=== PATIENT | female | born 1945 | race Two or more races ===

== ENCOUNTER 2021-09-25 12:34 | Emergency (ER) | payer MEDICAID, OTHER ==
[~2021-09-25] VITALS: Ht 162.6 cm; Wt 54.4 kg
[2021-09-25 14:00] LABS: Basophils # (auto) 0.1 10 ^3/uL (0-0.2); Basophils % (auto) 0.5 % (0.0-2.0); Eosinophils # (auto) 0.1 10 ^3/uL (0-0.8); Eosinophils % (auto) 0.4 % (0.0-7.0); Hematocrit 42.3 % (36.0-46.0); Hemoglobin 14.1 g/dL (12.2-16.2); Lymphocytes # (auto) 1.6 10 ^3/uL (0.4-5.4); Mean Corpuscular Hemoglobin 28.8 pg (28.0-32.0); Mean Corpuscular Hgb Conc. 33.4 g/dL (32.0-36.0); Mean Corpuscular Volume 86.1 fL (80.0-100.0); Monocytes # (auto) 0.8 10 ^3/uL (0-1.3); Monocytes % (auto) 6.2 % (0.0-12.0); Neutrophils # (auto) 10.9 10 ^3/uL (1.6-8.6); Neutrophils % (auto) 80.9 % (37.0-80.0); Red Blood Cells 4.91 10^6/uL (4.0-5.20); Red Cell Distribution Width 13.6 % (11.8-14.3); White Blood Cell 13.4 10^3/uL (4.4-10.8)
[2021-09-25 14:15] LABS: Albumin 3.7 g/dL (3.4-5.0); Calcium 9.9 mg/dL (8.5-10.1); Potassium 3.6 mmol/L (3.5-5.1)
[2021-09-25 14:19] LABS: BUN/Creatinine Ratio 15.6; Bilirubin, Total 0.4 mg/dL (0.2-1.0); Total Protein 7.8 g/dL (6.4-8.2)
[2021-09-25 16:06] LABS: Urine Bacteria NONE SEEN /hpf (None Seen); Urine Blood 1+ /uL (Negative); Urine Specific Gravity 1.016 (1.001-1.035); Urine WBC 1 /hpf (0 - 5)
[2021-09-25 17:00] VITALS: BP 150/66
== END 2021-09-25 18:52 | disposition home or self-care (01) ==
LOC: ER 12:34
DX: J20.9 Acute bronchitis, unspecified (principal); I10 Essential (primary) hypertension; Z20.822 Contact with and (suspected) exposure to COVID-19
CPT/HCPCS: 36415; 71046; 80053; 81001; 83880; 85025; 85379; 87426; 93005

== ENCOUNTER 2021-10-22 18:07 | Inpatient (IN) | payer MEDICAID ==
[~2021-10-22] VITALS: Ht 157.5 cm; Wt 62.5 kg
[2021-10-22] MEDS ORDERED: cefTRIAXone 1GM/50ML D5W 50 ML IV ONE (18:45)
[2021-10-22] MEDS ORDERED: AZITHROMYCIN 500MG/ 250ML 250 ML IV ONE (18:45)
[2021-10-22] MEDS ORDERED: SODIUM CHLORIDE 0.9% 1,000 ML IV ONE (18:45)
[2021-10-22 20:48] LABS: Basophils # (auto) 0 10 ^3/uL (0-0.2); Eosinophils # (auto) 0 10 ^3/uL (0-0.8); Hemoglobin 12.5 g/dL (12.2-16.2); Monocytes # (auto) 1.5 10 ^3/uL (0-1.3); Monocytes % (auto) 9.2 % (0.0-12.0); Neutrophils # (auto) 13.4 10 ^3/uL (1.6-8.6)
[2021-10-22 20:56] LABS: Basophils % (auto) 0.2 % (0.0-2.0); Hematocrit 37.9 % (36.0-46.0); Lymphocytes % (auto) 6.6 % (10.0-50.0); Mean Corpuscular Hemoglobin 28.5 pg (28.0-32.0); Mean Corpuscular Hgb Conc. 33.1 g/dL (32.0-36.0); Mean Corpuscular Volume 86.1 fL (80.0-100.0); Red Cell Distribution Width 13.2 % (11.8-14.3)
[2021-10-22 21:03] LABS: Albumin 2.8 g/dL (3.4-5.0); Calcium 8.4 mg/dL (8.5-10.1); Magnesium 2.7 mg/dL (1.6-2.6); Potassium 3.3 mmol/L (3.5-5.1)
[2021-10-22 21:09] LABS: BUN/Creatinine Ratio 17.3; Bilirubin, Total 0.2 mg/dL (0.2-1.0); Total Protein 6.9 g/dL (6.4-8.2)
[2021-10-22 21:14] LABS: INR 1.03 (0.9-1.15); Partial Thromboplastin Time 28.2 sec (23.6-33.0)
[2021-10-22] MEDS ORDERED: IOHEXOL 350 MG/ML 100ML IJ ONE (22:09)
[2021-10-23 01:36] LABS: Urine Bacteria NONE SEEN /hpf (None Seen); Urine Blood 1+ /uL (Negative); Urine Hyaline Cast FEW /lpf (0 - 2); Urine Mucus FEW (None Seen); Urine Specific Gravity 1.041 (1.001-1.035); Urine WBC 2 /hpf (0 - 5)
[2021-10-23] MEDS ORDERED: KETOROLAC TROMETH 30 MG/ML 1ML VIAL IV ONE (04:00)
[2021-10-23] MEDS ORDERED: MORPHINE SULFATE INJECTION 2 MG/ML SYRG IV PRN (05:00)
[2021-10-23] MEDS ORDERED: ONDANSETRON HCL 4 MG/2 ML VIAL IV PRN (05:00)
[2021-10-23 07:15] VITALS: BP 90/57
[2021-10-23] MEDS: HYDROcodone-ACET 5/325MG TAB PO PRN ×2 (09:14→20:15)
[2021-10-23] MEDS: levoFLOXacin 500MG 100 ML IV SCH (10:00)
[2021-10-23 12:23] VITALS: BP 137/49
[2021-10-23 17:00] VITALS: BP 125/56
[2021-10-23 22:00] VITALS: BP 126/60
[2021-10-24 05:00] VITALS: BP 133/60
[2021-10-24 09:00] VITALS: BP 151/56
[2021-10-24] MEDS: levoFLOXacin 500MG 100 ML IV SCH (10:04)
[2021-10-24] MEDS: HYDROcodone-ACET 5/325MG TAB PO PRN ×2 (10:20→17:48)
[2021-10-24] MEDS: ALBUTEROL SULF 2.5 MG/0.5ML(0.5%) NEB SOLN NEB PRN ×2 (11:46→22:11)
[2021-10-24 12:46] VITALS: BP 118/58
[2021-10-24 16:55] VITALS: BP 131/54
[2021-10-24 22:00] VITALS: BP 137/60
[2021-10-25 05:00] VITALS: BP 133/87
[2021-10-25] MEDS: ALBUTEROL SULF 2.5 MG/0.5ML(0.5%) NEB SOLN NEB PRN (07:43)
[2021-10-25 09:00] VITALS: BP 129/53
[2021-10-25] MEDS: levoFLOXacin 500MG 100 ML IV SCH (09:12)
[2021-10-25 09:42] LABS: Basophils # (auto) 0.1 10 ^3/uL (0-0.2); Basophils % (auto) 0.9 % (0.0-2.0); Eosinophils # (auto) 0 10 ^3/uL (0-0.8); Eosinophils % (auto) 0.2 % (0.0-7.0); Hematocrit 38.3 % (36.0-46.0); Hemoglobin 13.2 g/dL (12.2-16.2); Lymphocytes # (auto) 1.3 10 ^3/uL (0.4-5.4); Lymphocytes % (auto) 21.4 % (10.0-50.0); Mean Corpuscular Hemoglobin 29.9 pg (28.0-32.0); Mean Corpuscular Hgb Conc. 34.5 g/dL (32.0-36.0); Mean Corpuscular Volume 86.7 fL (80.0-100.0); Monocytes # (auto) 0.5 10 ^3/uL (0-1.3); Monocytes % (auto) 8.6 % (0.0-12.0); Neutrophils # (auto) 4.3 10 ^3/uL (1.6-8.6); Neutrophils % (auto) 68.9 % (37.0-80.0); Red Blood Cells 4.42 10^6/uL (4.0-5.20); Red Cell Distribution Width 13.2 % (11.8-14.3); White Blood Cell 6.2 10^3/uL (4.4-10.8)
[2021-10-25 09:58] LABS: BUN/Creatinine Ratio 14.5; Calcium 9.7 mg/dL (8.5-10.1); Potassium 3.8 mmol/L (3.5-5.1)
[2021-10-25 13:00] VITALS: BP 135/68
[2021-10-25 17:00] VITALS: BP 137/69
[2021-10-25 22:00] VITALS: BP 140/74
[2021-10-26] VITALS (7 sets, daily range): BP systolic 126–172; BP diastolic 55–83
[2021-10-26 05:44] LABS: Basophils # (auto) 0 10 ^3/uL (0-0.2); Basophils % (auto) 0.7 % (0.0-2.0); Eosinophils # (auto) 0.1 10 ^3/uL (0-0.8); Eosinophils % (auto) 1.1 % (0.0-7.0); Hematocrit 41.1 % (36.0-46.0); Hemoglobin 14.2 g/dL (12.2-16.2); Lymphocytes # (auto) 1.7 10 ^3/uL (0.4-5.4); Lymphocytes % (auto) 28.3 % (10.0-50.0); Mean Corpuscular Hemoglobin 29.8 pg (28.0-32.0); Mean Corpuscular Hgb Conc. 34.5 g/dL (32.0-36.0); Mean Corpuscular Volume 86.2 fL (80.0-100.0); Monocytes # (auto) 0.7 10 ^3/uL (0-1.3); Monocytes % (auto) 11.4 % (0.0-12.0); Neutrophils # (auto) 3.5 10 ^3/uL (1.6-8.6); Neutrophils % (auto) 58.5 % (37.0-80.0); Nucleated Red Blood Cells % 0.1 %; Red Blood Cells 4.77 10^6/uL (4.0-5.20); Red Cell Distribution Width 12.9 % (11.8-14.3)
[2021-10-26] MEDS ORDERED: guaiFENesin 200 MG/10 ML UD GT PRN (05:45)
[2021-10-26] MEDS ORDERED: guaiFENesin 200 MG/10 ML UD PO PRN (06:00)
[2021-10-26 06:05] LABS: Calcium 9.9 mg/dL (8.5-10.1); Potassium 4.2 mmol/L (3.5-5.1)
[2021-10-26 06:07] LABS: BUN/Creatinine Ratio 19.2
[2021-10-26] MEDS: ENOXAPARIN SOD 40 MG/0.4 ML SYRINGE SC SCH (09:52)
[2021-10-26] MEDS: levoFLOXacin 500MG 100 ML IV SCH (09:52)
[2021-10-27 05:00] VITALS: BP 138/57
[2021-10-27 06:12] LABS: Basophils # (auto) 0 10 ^3/uL (0-0.2); Basophils % (auto) 0.8 % (0.0-2.0); Eosinophils # (auto) 0.1 10 ^3/uL (0-0.8); Eosinophils % (auto) 2.1 % (0.0-7.0); Hematocrit 41.8 % (36.0-46.0); Hemoglobin 14.1 g/dL (12.2-16.2); Lymphocytes # (auto) 1.8 10 ^3/uL (0.4-5.4); Lymphocytes % (auto) 32.3 % (10.0-50.0); Mean Corpuscular Hemoglobin 28.9 pg (28.0-32.0); Mean Corpuscular Hgb Conc. 33.8 g/dL (32.0-36.0); Mean Corpuscular Volume 85.4 fL (80.0-100.0); Monocytes # (auto) 0.6 10 ^3/uL (0-1.3); Monocytes % (auto) 11.5 % (0.0-12.0); Neutrophils % (auto) 53.3 % (37.0-80.0); Nucleated Red Blood Cells % 0.1 %; Red Blood Cells 4.89 10^6/uL (4.0-5.20); Red Cell Distribution Width 13.2 % (11.8-14.3); White Blood Cell 5.6 10^3/uL (4.4-10.8)
[2021-10-27 06:31] LABS: BUN/Creatinine Ratio 22.6; Calcium 10.1 mg/dL (8.5-10.1); Potassium 4.1 mmol/L (3.5-5.1)
[2021-10-27 09:00] VITALS: BP 132/72
[2021-10-27] MEDS: levoFLOXacin 500MG 100 ML IV SCH (09:25)
[2021-10-27] MEDS: ENOXAPARIN SOD 40 MG/0.4 ML SYRINGE SC SCH (09:25)
[2021-10-27] MEDS: HYDROcodone-ACET 5/325MG TAB PO PRN ×3 (10:05→10:07)
[2021-10-27 12:58] VITALS: BP 131/74
[2021-10-27 17:06] VITALS: BP 134/74
== END 2021-10-27 21:00 | disposition home health service (06) | DRG 139 ==
LOC: ER 18:07 → TELE 10-23 04:47 → TELE-WESTW 10-23 16:11
PROVIDERS: ADMIT Internal Medicine; ATTEND Internal Medicine
DX: J15.9 Unspecified bacterial pneumonia (principal); J96.01 Acute respiratory failure with hypoxia; G93.1 Anoxic brain damage, not elsewhere classified; E44.1 Mild protein-calorie malnutrition; S22.43XA Multiple fractures of ribs, bilateral, initial encounter for closed fracture; I10 Essential (primary) hypertension; I95.1 Orthostatic hypotension; Z20.822 Contact with and (suspected) exposure to COVID-19; W18.39XA Other fall on same level, initial encounter; R59.0 Localized enlarged lymph nodes; Z88.0 Allergy status to penicillin; Y93.89 Activity, other specified; Y92.89 Other specified places as the place of occurrence of the external cause; Y99.8 Other external cause status; Z91.012 Allergy to eggs; Z91.018 Allergy to other foods
CPT/HCPCS: 36415; 36600; 70450; 70551; 71275; 80048; 80053; 81001; 82805; 83605; 83690; 83735; 84484; 85025; 85379; 85610; 85730; 87040; 87426; 87804; 93306; 94640; 95819; 97116; 97162; 97530; G0378; J0696; J1885; J1956; J2405

== ENCOUNTER 2025-06-18 11:29 | Inpatient (IN) | payer MEDICAID, OTHER ==
[~2025-06-18] VITALS: Ht 162.6 cm; Wt 68.0 kg
--- NOTE | 2025-06-18 11:38 | ED.PDOC ---
HPI Comments 80-year-old female with PMHx DM, HTN, Osteoarthritis, COPD brought in by EMS presents with a chief complaint of chest pain x onset this morning with associated nausea. Patient mentions that he pain is localized to her sternal region, radiating down to her right leg, describes as sharp, and rates her pain a 8/10. Patient took 324 ASA prior to EMS arrival. Patient is on 2L of O2 via NC. Patient has no family history of heart disease. Time Seen by MD: 11:29 Reviewed Notes: Medications, Allergies Allergies: Coded Allergies: Amoxicillin (Verified Allergy, Unknown, 06/18/25) Penicillins (Verified Allergy, Unknown, 06/18/25) Sulfa Antibiotics (Verified Allergy, Unknown, 06/18/25) Information Source: Patient, Emergency Med Personnel Mode of Arrival: EMS Severity: Moderate Timing: Hours Duration: Since onset Prehospital treatment: 12 Lead EKG, ASA, Rotary Filter Operator Location: Substernal Quality: Sharp Onset: At Rest Cardiac Risk Factors: HTN, Diabetes PE Risk Factors: None History of: None Past Medical History PAST MEDICAL HISTORY: Arthritis, COPD, DM, HTN Surgical History (Other): BILATERAL KNEE REPLACEMENT 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: Denies all 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 Hx Family History Family History: Reviewed,noncontributory to illness Social History Smoker: Non-Smoker Alcohol: Denies ETOH Use Drugs: Denies Drug Use Lives In: Home Constitutional: denies: chills, diaphoresis, fatigue, fever, malaise, sweats, weakness, others EENTM: denies: blurred vision, double vision, ear bleeding, ear discharge, ear drainage, ear pain, ear ringing, eye pain, eye redness, hearing loss, mouth pain, mouth swelling, nasal discharge, nose bleeding, nose congestion, nose pain, photophobia, tearing, throat pain, throat swelling, voice changes, others Respiratory: denies: cough, hemoptysis, orthopnea, SOB at rest, shortness of breath, SOB with excertion, stridor, wheezing, others Cardiovascular: reports: chest pain; denies: dizzy spells, diaphoresis, Dyspnea on exertion, edema, irregular heart beat, left arm pain, lightheadedness, palpitations, PND, syncope, others Gastrointestinal: reports: nausea; denies: abdomen distended, abdominal pain, blood streaked bowels, constipated, diarrhea, dysphagia, difficulty swallowing, hematemesis, melena, poor appetite, poor fluid intake, rectal bleeding, rectal pain, vomiting, others Genitourinary: denies: abnormal vagina bleeding, burning, dyspareunia, dysuria, flank pain, frequency, hematuria, incontinence, pain, , vagina discharge, urgency, others Neurological: denies: dizziness, fainting, headache, left sided numbness, left sided weakness, numbness, paresthesia, pre-existing deficit, right sided numbness, right sided weakness, seizure, speech problems, tingling, tremors, weakness, others Musculoskeletal: denies: back pain, gout, joint pain, joint swelling, muscle pain, muscle stiffness, neck pain, others Integumetry: denies: bruises, change in color, change in hair/nails, dryness, laceration, lesions, lumps, rash, wounds, others Allergic/Immunocompromised: denies: Difficulty Healing, Frequent Infections, Hives, Itching, others Hematologic/Lymphatic: denies: anemia, blood clots, easy bleeding, easy bruising, swollen glands, others Endocrine: denies: excessive hunger, excessive sweating, excessive thirst, excessive urination, flushing, intolerance to cold, intolerance to heat, u nexplained weight gain, unexplained weight loss, others Psychiatric: denies: anxiety, bipolar disorder, depression, hopeless, panic disorder, schizophrenia, sleepless, suicidal, others All Other Systems: Reviewed and Negative Physical Exam General Appearance: Moderate Distress HEENT: Normal ENT Inspection, Pharynx Normal, TMs Normal Neck: Full Range of Motion, Non-Tender, Normal, Normal Inspection Respiratory: Chest Non-Tender, Lungs Clear, No Accessory Muscle Use, No Respiratory Distress, Normal Breath Sounds Cardiovascular: No Edema, No JVD, No Murmur, No Gallop, Normal Peripheral Pulses, Regular Rate/Rhythm Breast Exam: Deferred Gastrointestinal: No Organomegaly, Non Tender, No Pulsatile Mass, Normal Bowel Sounds, Soft Genitalia: Deferred Pelvic: Deferred Rectal: Deferred Extremities: No calf tenderness, Normal capillary refill, Normal inspection, Normal range of motion, Non-tender, No pedal edema Musculoskeletal : Apperance: Normal Neurologic: Alert, explosive technician II-XII nml as Tested, Motor Weakness, Normal Affect, Normal Mood, No Sensory Deficits Cerebellar Function: Normal Reflexes: Normal Skin: Dry, Normal Color, Warm Lymphatic: No Adenopathy EKG EKG : Pulse Rate (adult): 74 [place]: RAD Cardiac Rhythm: NSR Block: None Hypertrophy: None ST: Normal Was a procedure done? Was a procedure done?: No CP Differential Dx Differential Diagnosis: Angina, [place], Pulmonary Embolus Differential Diagnosis: CHF Differential Diagnosis: Pericarditis X-Ray, Labs, Meds, VS Vital Signs Date Time Temp Pulse Resp B/P (MAP) Pulse Ox O2 Delivery O2 Flow Rate FiO2 06/18/25 14:21 75 16 164/75 (104) 97 06/18/25 12:42 70 06/18/25 11:38 74 06/18/25 11:36 97.4 79 20 162/71 (101) 98 97.4 06/18/25 11:33 74 Lab Test 06/18/25 11:45 06/18/25 11:33 Range/Units White Blood Count 6.8 4.4-10.8 10^3/uL Red Blood Count 4.94 4.0-5.20 10^6/uL Hemoglobin 14.4 12.2-16.2 g/dL Hematocrit 41.7 36.0-46.0 % Mean Corpuscular Volume 84.4 80.0-100.0 fL Mean Corpuscular Hemoglobin 29.1 28.0-32.0 pg Mean Corpuscular Hemoglobin Concent 34.5 32.0-36.0 g/dL Red Cell Distribution Width 14.7 H 11.8-14.3 % Platelet Count 332 140-450 10^3/uL Mean Platelet Volume 7.4 6.9-10.8 fL Neutrophils (%) (Auto) 60.9 37.0-80.0 % Lymphocytes (%) (Auto) 28.1 10.0-50.0 % Monocytes (%) (Auto) 8.3 0.0-12.0 % Eosinophils (%) (Auto) 2.0 0.0-7.0 % Basophils (%) (Auto) 0.7 0.0-2.0 % Neutrophils # (Auto) 4.1 1.6-8.6 10 ^3/uL Lymphocytes # (Auto) 1.9 0.4-5.4 10 ^3/uL Monocytes # (Auto) 0.6 0-1.3 10 ^3/uL Eosinophils # (Auto) 0.1 0-0.8 10 ^3/uL Basophils # (Auto) 0.1 0-0.2 10 ^3/uL Nucleated Red Blood Cells 0.1 % Sodium Level 142 136-145 mmol/L Potassium Level 4.4 3.5-5.1 mmol/L Chloride Level 107 98-107 mmol/L Carbon Dioxide Level 28 20-31 mmol/L Anion Gap 7 5-15 Blood Urea Nitrogen 11 9-23 mg/dL Creatinine 0.60 0.550-1.02 mg/dL Glomerular Filtration Rate Calc 92 >90 mL/min BUN/Creatinine Ratio 18.3 10.0-20.0 Serum Glucose 100 74-106 mg/dL Calcium Level 10.3 8.7-10.4 mg/dL Troponin I High Sensitivity < 3 L </=34 ng/L B-Type Natriuretic Peptide 10.18 0-100 pg/mL Urine Color Colorless Yellow Urine Clarity Clear Clear Urine pH 7.0 5.0-9.0 Urine Specific [place] 1.008 1.001-1.035 Urine Protein Negative Negative Urine Ketones Negative Negative Urine Blood Negative Negative /uL Urine Nitrite Negative Negative Urine Bilirubin Negative Negative Urine Urobilinogen Normal Negative mg/dL Urine Leukocyte Esterase Negative Negative /uL Urine RBC 1 0 - 4 /hpf Urine Microscopic WBC 0-5 /HPF Urine Squamous Epithelial Cells None seen <5 /hpf Urine Bacteria None seen None Seen /hpf Urine Glucose Normal Normal mg/dL IV Hep-Lock was established The patient's CBC is within normal limits The chemistry panel is within normal limits The troponin level is negative The urine test is within normal limits Chest x-ray is negative At this time, the patient is being admitted to the hospitalist Images Reviewed?: Images reviewed and evaluated by me Time of 1ST Reevaluation: 11:59 Reevaluation 1ST: Improved Patient Education/Counseling: Diagnosis, Treatment, Prognosis Family Education/Counseling: No Family Present SEPSIS Sepsis Screen Physician Orders Heplock Iv (06/18/25 11:33) Rotary Filter Operator (06/18/25 11:33) Blood Pressure (06/18/25 11:33) Pulse Oximetry (06/18/25 11:33) Troponin-I Hs (06/18/25 12:33) Troponin-I Hs (06/18/25 14:33) Electrocardigram (06/18/25 14:33) Chest Portable (06/18/25 11:34) Vital Signs Date Time Temp Pulse Resp B/P (MAP) Pulse Ox O2 Delivery O2 Flow Rate FiO2 06/18/25 14:21 75 16 164/75 (104) 97 06/18/25 12:42 70 06/18/25 11:38 74 06/18/25 11:36 97.4 79 20 162/71 (101) 98 97.4 06/18/25 11:33 74 Laboratory Tests Test 06/18/25 11:45 White Blood Count 6.8 10^3/uL (4.4-10.8) Departure 1 Departure Time of Disposition: 14:59 Impression: Primary Impression: Acute coronary syndrome Disposition: ADMITTED INPATIENT Admit to: Tele Condition: Fair Critical Care Note Critical Care Time?: Yes (45 min-critical care time only) Stability Stability form required: Yes Unstable for transfer: Telemetry monitoring (Telemetry monitoring required), ED Physician Assesment (Clinical assesment) Heart Score Heart Score: Heart Score Response (Comments) Value History Moderate Suspicious 1 EKG Repolarization Disturb 1 Age >65 2 Risk Factors >3 or Hx ASHD 2 Troponin Normal limit 0 Total 6 I personally scribed for CHIN RODRIGUEZ MD ([email or web address]) on 06/18/25 at 11:38. Electronically submitted by John Larson ([email or web address]). CHIN RODRIGUEZ MD Jun 18, 2025 11:38
[2025-06-18 12:19] LABS: Hematocrit 41.7 % (36.0-46.0); Hemoglobin 14.4 g/dL (12.2-16.2); Mean Corpuscular Hemoglobin 29.1 pg (28.0-32.0); Mean Corpuscular Volume 84.4 fL (80.0-100.0); Nucleated Red Blood Cells % 0.1 %
--- NOTE | 2025-06-18 12:30 | DVH ---
INDICATION: CP TECHNIQUE: Frontal view of the chest. COMPARISON: None FINDINGS: Left-sided chronic rib fractures. The heart and mediastinal contours are grossly unremarkable. There is no evidence of pleural disease. The lungs are clear. The bony structures of the chest are inta ct without fracture. IMPRESSION: 1. No evidence of acute disease.
[2025-06-18 12:31] LABS: Anion Gap 7 (5-15); Carbon Dioxide 28 mmol/L (20-31); Potassium 4.4 mmol/L (3.5-5.1); Sodium 142 mmol/L (136-145)
[2025-06-18 12:32] LABS: Calcium 10.3 mg/dL (8.7-10.4); Chloride 107 mmol/L (98-107)
[2025-06-18 12:37] LABS: BUN/Creatinine Ratio 18.3 (10.0-20.0); Blood Urea Nitrogen 11 mg/dL (9-23); Glucose 100 mg/dL (74-106)
--- NOTE | 2025-06-18 12:45 | ECG ---
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
[2025-06-18 12:54] LABS: Urine Protein, UAD Negative (Negative)
--- NOTE | 2025-06-18 14:46 | ECG ---
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
[2025-06-18] MEDS ORDERED: ALBUTEROL SULF 2.5 MG/0.5ML(0.5%) NEB SOLN NEB PRN (15:15)
[2025-06-18] MEDS ORDERED: hydrALAZINE HCL 20 MG/ML VL IV PRN (15:15)
[2025-06-18] MEDS ORDERED: DEXTROSE (50%) 50ML SYRG IV PRN (15:30)
[2025-06-18] MEDS ORDERED: ACETAMINOPHEN 325 MG TAB PO PRN (15:30)
[2025-06-18] MEDS ORDERED: HYDROcodone-ACET 5/325MG TAB PO PRN (15:30)
[2025-06-18] MEDS ORDERED: ONDANSETRON HCL 4 MG/2 ML VIAL IV PRN (15:30)
[2025-06-18] MEDS ORDERED: DOCUSATE SOD 100 MG CAP PO PRN (15:30)
[2025-06-18] MEDS: InsuLIN REG 1unit/0.01ml Soln (100units/ml) SC SCH (17:00)
[2025-06-18 17:12] VITALS: BP 164/75; PULSE 75; RESP 16; TEMP 97.4; O2SAT 97
[2025-06-18] MEDS: ACCU-CHEK COMFORT CURVE STRIP VI SCH (17:17)
--- NOTE | 2025-06-18 17:25 | DVHHP2 ---
History of Present Illness Reason for Visit: Acute coronary syndrome History of Present Illness The patient is a 80-year-old female with past medical history of arthritis, COPD, diabetes mellitus, hypertension, and hyperlipidemia who presented to [facility] ED with complaint of chest pain. Patient reports she has been experiencing localized tenderness chest pain radiating down to her right leg, described as sharp, rating 8/10 numeric scale, associated with nausea, getting worse that prompted this visit. Patient was seen and evaluated in the ED, laboratory data shows WBC 6.8, platelets 332, sodium 142, potassium 4.4, BUN 11, creatinine 0.60, glucose 100, calcium 10.3, BNP 10.18, troponin < 3, blood pressure 164/75, heart rate 75, temperature 97.6 F, O2 saturation 97% on room air. Chest x-ray show no evidence of acute disease, please see medication orders section in the computer. On my assessment, patient denied chest pain at this moment, no headache, no dizziness, no shortness of breath, no nausea, no vomiting, no fever, no chills. Patient was admitted for further evaluation and medical management. Past Medical History Arthritis, COPD, DM, HTN, HLD Past Surgical History Bilateral knee replacement Family History Reviewed, noncontributory to the management of this case. Past Social History The patient lives at home, denies smoking, alcohol or illicit drugs abuse. Review of Systems Constitutional: Yes: Weakness; No: Fever, Chills, Sweats, Malaise, Other Eyes: No: Pain, Vision change, Conjunctivae inflammation, Eyelid inflammation, Other, Redness ENT: No: Ear pain, Ear discharge, Nose pain, Nose discharge, Nose congestion, Mouth pain, Mouth swelling, Throat pain, Throat swelling, Other Respiratory: No: Cough, Dry, Shortness of breath, SOB with excertion, Wheezing, Hemoptysis, Pleuritic Pain, Sputum, Wheezing, Other Cardiovascular: Chest Pain; No: Palpitations, Orthopnea, Paroxysmal Noc. Dyspnea, Edema, Lt Headedness, Other Gastrointestinal: Nausea; No: Vomiting, Abdominal Pain, Diarrhea, Constipation, Melena, Hematochezia, Other Genitourinary: No Dysuria, No Frequency, No Incontinence, No Hematuria, No Retention, No Other Musculoskeletal: No: other, neck pain, shoulder pain, arm pain, back pain, hand pain, leg pain, foot pain Skin: No: Rash, Lesions, Jaundice, Bruising, Other Neurological: No: Weakness, Numbness, Incoordination, Change in speech, Confusion, Seizures, Other Allergies: Coded Allergies: Amoxicillin (Unverified Allergy, Unknown, 06/18/25) Egg-derived Products (Verified Allergy, Unknown, 10/24/21) Penicillins (Verified Allergy, Unknown, 10/22/21) Pineapple (Verified Allergy, Unknown, 10/24/21) [place] (Verified Allergy, Unknown, 10/24/21) Sulfa Antibiotics (Unverified Allergy, Unknown, 06/18/25) Medications Current Medications Medications Dose Ordered Sig/Alpa Route Start Time Stop Time Status Last Admin Dose Admin Aspirin 81 mg DAILY PO 06/19/25 10:00 Atorvastatin Calcium 10 mg HS PO 06/18/25 22:00 Famotidine 20 mg DAILY IV 06/19/25 10:00 Losartan Potassium 50 mg DAILY PO 06/19/25 10:00 Hydralazine HCl 10 mg Q6HP PRN IV 06/18/25 15:15 Albuterol 2.5 mg Q4HPRN PRN NEB 06/18/25 15:15 Diagnostic Test (Pha) 1 strip ACHS 06/18/25 17:00 06/18/25 17:17 1 STRIP Insulin Human Regular ACHS SC 06/18/25 17:00 Dextrose 50 ml UD PRN IV 06/18/25 15:30 Sodium Chloride 10 ml Q8HR IV 06/18/25 22:00 Acetaminophen/ Hydrocodone Bitart 1 tab Q4HP PRN PO 06/18/25 15:30 Ondansetron HCl 4 mg Q4HP PRN IV 06/18/25 15:30 Docusate Sodium 100 mg BIDPRN PRN PO 06/18/25 15:30 Acetaminophen 650 mg Q6HP PRN PO 06/18/25 15:30 Exam Vital Signs Vital Signs Date Time Temp Pulse Resp B/P (MAP) Pulse Ox O2 Delivery O2 Flow Rate FiO2 06/18/25 17:12 97.4 75 16 164/75 97 21 97.4 General Appearance: Alert, Oriented X3, Cooperative, No acute distress HEENT: Atraumatic, PERRLA, EOMI, Mucous membr. moist/pink Respiratory: Normal air movement Cardiovascular: Regular rate, Normal S1, Normal S2, No murmurs Abdominal: Normal bowel sounds, Soft, No tenderness, No hepatospenomegaly, No masses Extremities: No clubbing, No cyanosis, No edema, Normal pulses, No tenderness/swelling Skin: No rashes, No breakdown, No significant lesion Neuro: Normal speech, Normal tone, Sensation intact, Cranial nerves 3-12 NL, Reflexes 2+, Other (Generalized weakness) Psych/Mental Status: Mental status NL, Mood NL Labs/Xrays Labs Test 06/18/25 15:37 06/18/25 11:45 06/18/25 11:33 Range/Units Troponin I High Sensitivity 4 </=34 ng/L White Blood Count 6.8 4.4-10.8 10^3/uL Red Blood Count 4.94 4.0-5.20 10^6/uL Hemoglobin 14.4 12.2-16.2 g/dL Hematocrit 41.7 36.0-46.0 % Mean Corpuscular Volume 84.4 80.0-100.0 fL Mean Corpuscular Hemoglobin 29.1 28.0-32.0 pg Mean Corpuscular Hemoglobin Concent 34.5 32.0-36.0 g/dL Red Cell Distribution Width 14.7 H 11.8-14.3 % Platelet Count 332 140-450 10^3/uL Mean Platelet Volume 7.4 6.9-10.8 fL Neutrophils (%) (Auto) 60.9 37.0-80.0 % Lymphocytes (%) (Auto) 28.1 10.0-50.0 % Monocytes (%) (Auto) 8.3 0.0-12.0 % Eosinophils (%) (Auto) 2.0 0.0-7.0 % Basophils (%) (Auto) 0.7 0.0-2.0 % Neutrophils # (Auto) 4.1 1.6-8.6 10 ^3/uL Lymphocytes # (Auto) 1.9 0.4-5.4 10 ^3/uL Monocytes # (Auto) 0.6 0-1.3 10 ^3/uL Eosinophils # (Auto) 0.1 0-0.8 10 ^3/uL Basophils # (Auto) 0.1 0-0.2 10 ^3/uL Nucleated Red Blood Cells 0.1 % Sodium Level 142 136-145 mmol/L Potassium Level 4.4 3.5-5.1 mmol/L Chloride Level 107 98-107 mmol/L Carbon Dioxide Level 28 20-31 mmol/L Anion Gap 7 5-15 Blood Urea Nitrogen 11 9-23 mg/dL Creatinine 0.60 0.550-1.02 mg/dL Glomerular Filtration Rate Calc 92 >90 mL/min BUN/Creatinine Ratio 18.3 10.0-20.0 Serum Glucose 100 74-106 mg/dL Calcium Level 10.3 8.7-10.4 mg/dL B-Type Natriuretic Peptide 10.18 0-100 pg/mL Urine Color Colorless Yellow Urine Clarity Clear Clear Urine pH 7.0 5.0-9.0 Urine Specific [place] 1.008 1.001-1.035 Urine Protein Negative Negative Urine Ketones Negative Negative Urine Blood Negative Negative /uL Urine Nitrite Negative Negative Urine Bilirubin Negative Negative Urine Urobilinogen Normal Negative mg/dL Urine Leukocyte Esterase Negative Negative /uL Urine RBC 1 0 - 4 /hpf Urine Microscopic WBC 0-5 /HPF Urine Squamous Epithelial Cells None seen <5 /hpf Urine Bacteria None seen None Seen /hpf Urine Glucose Normal Normal mg/dL PATIENT: FLORENCE REESECCT: [id number] UNIT: [id number] : 1945 LOC: OVERFLOW ROOM / BED: [address] [place] [address] AGE / SEX: 80 / F ADM STATUS: ADM IN SERVICE 1134 ORDERING PHYSICIAN: CHIN RODRIGUEZ MD PROCEDURE(s): CXRP - CHEST PORTABLE REASON: CP ORDER NUMBER(s): [id number], ACCESSION NUMBER(s): [id number] INDICATION: CP TECHNIQUE: Frontal view of the chest. COMPARISON: None FINDINGS: Left-sided chronic rib fractures. The heart and mediastinal contours are grossly unremarkable. There is no evidence of pleural disease. The lungs are clear. The bony structures of the chest are intact without fracture. IMPRESSION: 1. No evidence of acute disease. SEPSIS Sepsis Screen Date sepsis recognized/suspect: Jun 18, 2025 Time Sepsis recognized/suspect: 1128 Recent Procedure: No On Antibiotic Therapy: No Respiratory Rate >20: No Heart Rate >90: No Temp<36 C (96.8 F) or >38.3 C: No SBP <90 or MAP <65 mmHG: No New Acute Mental Status Change: No Is the patient on CPAP, BIPAP,: No Physician Orders Heplock Iv (06/18/25 11:33) Freight Rate Analyst (06/18/25 11:33) Blood Pressure (06/18/25 11:33) Pulse Oximetry (06/18/25 11:33) Electrocardigram (06/18/25 14:33) Chest Portable (06/18/25 11:34) Aspirin Tablet (06/19/25 10:00) Atorvastatin (Lipitor) (06/18/25 22:00) Famotidine Injection (Pepcid Injection) (06/19/25 10:00) Losartan Tablet (Cozaar Tablet) (06/19/25 10:00) Hydralazine Injection (Apresoline Inject (06/18/25 15:15) Albuterol Medneb (Ventolin Medneb) (06/18/25 15:15) Consistent Carb(Ccho)Diabetes (06/18/25 Dinner) Glucose Blood (Accu-Chek Comfort Curve T (06/18/25 17:00) Insulin R (Human) (Insulin R) (06/18/25 17:00) Dextrose 50% Syringe (06/18/25 15:30) Allergies (06/18/25 15:19) Code Status (06/18/25 15:19) Sodium Chloride Lock (Saline Lock Ns) (06/18/25 22:00) Oxygen Per Hour (06/18/25 15:19) Hydrocodone-Acet 5/325mg Tab ([place] 5/32 (06/18/25 15:30) Ondansetron Hcl (Zofran) (06/18/25 15:30) Docusate Sodium Capsule (Colace Capsule) (06/18/25 15:30) Complete Blood Count (06/19/25 04:00) Comprehensive Metabolic Panel (06/19/25 04:00) Condition: Serious (06/18/25 15:19) Acetaminophen Tablet (Tylenol Tablet) (06/18/25 15:30) Bedrest With Bathroom Privileg (06/18/25 15:19) Sequential Compression Device (06/18/25 ) Vital Signs Date Time Temp Pulse Resp B/P (MAP) Pulse Ox O2 Delivery O2 Flow Rate FiO2 06/18/25 17:12 97.4 75 16 164/75 97 21 97.4 06/18/25 14:21 75 16 164/75 (104) 97 06/18/25 12:42 70 06/18/25 11:38 74 06/18/25 11:36 97.4 79 20 162/71 (101) 98 97.4 06/18/25 11:33 74 Laboratory Tests Test 06/18/25 11:45 White Blood Count 6.8 10^3/uL (4.4-10.8) Medications Medications Dose Ordered Sig/Alpa Route Start Time Stop Time Status Last Admin Dose Admin Diagnostic Test (Pha) 1 strip ACHS 06/18/25 17:00 06/18/25 17:17 1 STRIP Assessment/Plan Assessment/Plan Acute coronary syndrome Generalized weakness Plan 1. Admit to telemetry unit 2. Breathing treatment 3. Pain control management 4. Management of fluids and electrolytes 5. Consultation for hospitalist 6. Diagnostic tests chest x-ray 7. DVT prophylaxis-on aspirin 8. Repeat labs CBC, CMP in a.m. 9. Continue with current medical management 10. Treatment plan discussed with patient and RN. Patient verbalized understanding. Plan discussed with: Patient, Other (RN) My Orders Orders - LAILA SNOWDEN DNP Procedure Category Date Status Time Aspirin Tablet PHA 06/19/25 In Process 10:00 Atorvastatin (Lipitor) PHA 06/18/25 In Process 22:00 Famotidine Injection PHA 06/19/25 In Process (Pepcid Injection) 10:00 Losartan Tablet PHA 06/19/25 In Process (Cozaar Tablet) 10:00 Hydralazine Injection PHA 06/18/25 In Process (Apresoline Inject 15:15 Albuterol Medneb PHA 06/18/25 In Process (Ventolin Medneb) 15:15 Consistent DIET 06/18/25 Transmitted Carb(Ccho)Diabetes Dinner Glucose Blood PHA 06/18/25 In Process (Accu-Chek Comfort 17:00 Insulin R (Human) PHA 06/18/25 In Process (Insulin R) 17:00 Dextrose 50% Syringe PHA 06/18/25 In Process 15:30 Allergies RIAZ 06/18/25 In Process 15:19 Code Status CODE 06/18/25 Transmitted 15:19 Sodium Chloride Lock PHA 06/18/25 In Process (Saline Lock Ns) 22:00 Oxygen Per Hour RT 06/18/25 Transmitted 15:19 Hydrocodone-Acet PHA 06/18/25 In Process 5/325mg Tab ([place] 15:30 Ondansetron Hcl PHA 06/18/25 In Process (Zofran) 15:30 Docusate Sodium PHA 06/18/25 In Process Capsule (Colace 15:30 Complete Blood Count LAB 06/19/25 Verified 04:00 Comprehensive LAB 06/19/25 Verified Metabolic Panel 04:00 Condition: Serious RIAZ 06/18/25 In Process 15:19 Acetaminophen Tablet PHA 06/18/25 In Process (Tylenol Tablet) 15:30 Bedrest With Bathroom RIAZ 06/18/25 In Process Privileg 15:19 Sequential RIAZ 06/18/25 In Process Compression Device Problem List: (1) Acute coronary syndrome (2) Generalized weakness Date of Service: Jun 18, 2025 Billing Provider: LAILA SNOWDEN DNP Common Visit Codes: [id number] INP/OBS CARE (HIGH) LAILA SNOWDEN DNP Jun 18, 2025 17:25
[2025-06-18 17:28] VITALS: BP 151/69; PULSE 78; RESP 18
[2025-06-18] MEDS ORDERED: NITROGLYCERIN 0.4 MG SL TAB SL PRN (17:30)
[2025-06-18] MEDS ORDERED: MORPHINE SULFATE INJ 2 MG/ml SYRG IV PRN (17:30)
[2025-06-18 18:21] VITALS: O2SAT 98
[2025-06-18] MEDS ORDERED: GABAPENTIN 300 MG CAP PO SCH (22:00)
[2025-06-18] MEDS ORDERED: SODIUM CHLOR 0.9% PF (SALINE LOCK) 10ML VIAL/SYR IV SCH (22:00)
[2025-06-18] MEDS ORDERED: ATORVASTATIN 20 MG TAB PO SCH (22:00)
[2025-06-19] MEDS ORDERED: FAMOTIDINE (10MG/ML) 2ML VL IV SCH (10:00)
[2025-06-19] MEDS ORDERED: LOSARTAN POTASSIUM 50 MG TAB PO SCH (10:00)
== END 2025-06-18 19:48 | disposition left against medical advice (07) | DRG 198 ==
LOC: EDBD 11:29 → ER 11:29 → EDUNIT# 17:24 → OVERFLOW 17:24
PROVIDERS: ADMIT Nurse Practitioner Acute Care; ATTEND Nurse Practitioner Acute Care
DX: I24.9 Acute ischemic heart disease, unspecified (principal); E11.9 Type 2 diabetes mellitus without complications; J44.9 Chronic obstructive pulmonary disease, unspecified; I10 Essential (primary) hypertension; E78.5 Hyperlipidemia, unspecified; Z96.653 Presence of artificial knee joint, bilateral; Z88.0 Allergy status to penicillin; Z88.2 Allergy status to sulfonamides; Z91.018 Allergy to other foods
CPT/HCPCS: 36415; 71045; 80048; 81001; 82962; 83880; 84484; 85025; 93005; 99291; G0378